=== PATIENT | female | born 1980 | race Caucasian/White ===

== ENCOUNTER → 2017-10-20 | Outpatient (CLI) | payer MEDICAID | LOC: FIMAGING 09:19 | DX: O99.332 Smoking (tobacco) complicating pregnancy, second trimester (principal); O09.522 Supervision of elderly multigravida, second trimester; F17.210 Nicotine dependence, cigarettes, uncomplicated; Z87.59 Personal history of other complications of pregnancy, childbirth and the puerperium; Z3A.19 19 weeks gestation of pregnancy ==